=== PATIENT | male | born 1990 | race Caucasian/White ===

== ENCOUNTER 2018-03-19 11:29 | Emergency (ER) | payer OTHER ==
[~2018-03-19] VITALS: Ht 167.6 cm; Wt 90.7 kg
--- NOTE | 2018-03-19 13:28 | RADIOLOGY REPORT ---
EXAMINATION: XR FOREARM, RIGHT XR HAND, RIGHT CLINICAL INFORMATION: History of fall with pain of forearm, wrist and hand COMPARISON: None TECHNIQUE: Right hand, 3 views Right forearm, 2 views FINDINGS: Right forearm: Acute, nondisplaced, intra-articular fracture in the lateral aspect of the radial head. Otherwise, radius and ulna are unremarkable. Small elbow joint effusion. Right hand: Bones have normal alignment within the hand and wrist. Joint spaces are preserved. No acute fracture or subluxation. No focal soft tissue swelling. Old, healed boxer's fracture of the fifth metacarpal. IMPRESSION: 1. There is an acute, nondisplaced intra-articular fracture of the radial head. 2. No acute abnormalities within the distal right forearm, wrist or hand.
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
[2018-03-19] MEDS ORDERED: PERCOCET 5-3251 EACH PO (14:47)
[2018-03-19] MEDS ORDERED: IBUPROFEN800 M1 PO (14:47)
[2018-03-19 15:17] VITALS: BP 122/78
== END 2018-03-19 15:18 ==
LOC: ERH 11:29
DX: S52.121A Displaced fracture of head of right radius, initial encounter for closed fracture (principal); W19.XXXA Unspecified fall, initial encounter; Y93.02 Activity, running; Y92.89 Other specified places as the place of occurrence of the external cause
CPT/HCPCS: 73090-RT; 73130-RT; 96372; J1885